=== PATIENT | male | born 1960 | race Caucasian/White ===

== ENCOUNTER → 2016-10-04 | Outpatient (CLI) | payer BC ==
[~2016-10-04] MED LIST: LEVOTHYROXINE125 MCG PO; LEXAPRO 10MG10 MG PO; METOPROLOL SUCC50 M1 PO; VITAMIN B-12 IM
[2016-10-04 14:00] VITALS: BP 129/85
== END ==
LOC: RAD 12:44
DX: Z01.811 Encounter for preprocedural respiratory examination (principal); M17.12 Unilateral primary osteoarthritis, left knee; Z01.812 Encounter for preprocedural laboratory examination; Z01.810 Encounter for preprocedural cardiovascular examination; M89.9 Disorder of bone, unspecified

== ENCOUNTER → 2016-11-04 | Outpatient (CLI) | payer BC | LOC: RAD 10:37 | DX: R93.8 Abnormal findings on diagnostic imaging of other specified body structures (principal) | CPT/HCPCS: Q9967 ==

== ENCOUNTER → 2016-12-24 | Outpatient (CLI) | payer BC | LOC: LAB 14:23 | DX: E29.1 Testicular hypofunction (principal) ==

== ENCOUNTER → 2018-04-15 | Outpatient (CLI) | payer BC ==
[2016-10-04 14:00] VITALS: BP 129/85
== END ==
LOC: LAB 10:34
DX: Z00.00 Encounter for general adult medical examination without abnormal findings (principal); E29.1 Testicular hypofunction

== ENCOUNTER → 2018-06-16 | Outpatient (CLI) | payer BC ==
[~2018-06-16] VITALS: Ht 177.8 cm; Wt 151.8 kg
[~2018-06-16] MED LIST changes: +CYANOCOBAL1000 MCG/1 IM; +DEPO-TESTOS200 MG/M1 IM; +FLONASE ALLERG9.9 ML NS; +VALIUM 5MG T5 MG/TAB PO
[2018-06-16 14:15] LABS: BASO # 0.1 (0.02-0.10); HEMATOCRIT 51.4 % (42.0-52.0); HEMOGLOBIN 16.5 g/dL (13.5-18.0); LYMPH# 1.6 (1.50-4.00); MEAN CELL VOLUME 105 fl (78-100); MEAN CORPUSCULAR HEMOGLOBIN 34 pg (27-31); MEAN CORPUSCULAR HGB CONC 32 g/dL (33-37); MEAN PLATELET VOLUME 11.1 fl (7.4-10.4); MONO # 0.7 (0.20-0.80); NEU # 6.5 (1.40-6.50); PLATELET COUNT 190 K/mm3 (130-400); RED BLOOD COUNT 4.92 M/mm3 (4.20-5.60); RED CELL DISTRIBUTION WIDTH 15.7 % (11.5-14.5); WHITE BLOOD COUNT 9.6 K/mm3 (4.8-10.8)
[2018-06-16 14:22] LABS: EOS # 0.8 (0.04-0.40); EOS % 7.8 % (0.0-4.0)
[2018-06-16 14:28] LABS: CALCIUM 8.6 mg/dL (8.4-10.2); TOTAL BILIRUBIN 0.9 mg/dL (0.2-1.3); TOTAL PROTEIN 6.6 g/dL (6.3-8.2)
[2018-06-16 14:36] VITALS: BP 130/84
[2018-06-16 15:32] LABS: PROTHROMBIN TIME 10.5 SECONDS (9.0-12.0)
[2018-06-16 16:32] LABS: URINE APPEARANCE HAZY; URINE COLOR YELLOW
[2018-06-16 16:33] LABS: URINE BILIRUBIN NEGATIVE (NEGATIVE); URINE BLOOD NEGATIVE (NEGATIVE); URINE GLUCOSE NEGATIVE (NEGATIVE); URINE KETONE NEGATIVE (NEGATIVE); URINE LEUKOCYTE ESTERASE NEGATIVE (NEGATIVE); URINE NITRATE NEGATIVE (NEGATIVE); URINE PROTEIN(semi-quant) TRACE mg/dL (NEGATIVE); URINE UROBILINOGEN NORMAL (NORMAL)
== END ==
LOC: AMSURD 13:53
PROVIDERS: Internal Medicine
DX: Z01.818 Encounter for other preprocedural examination (principal); J84.10 Pulmonary fibrosis, unspecified

== ENCOUNTER → 2019-03-05 | Outpatient (CLI) | payer BC ==
[2018-06-16 14:36] VITALS: BP 130/84
[2019-03-05 17:40] LABS: URINE APPEARANCE HAZY; URINE BILIRUBIN NEGATIVE (NEGATIVE); URINE BLOOD 50 ery/uL (NEGATIVE); URINE COLOR YELLOW; URINE GLUCOSE NEGATIVE (NEGATIVE); URINE KETONE 1+ (NEGATIVE); URINE LEUKOCYTE ESTERASE 1+ (NEGATIVE); URINE NITRATE NEGATIVE (NEGATIVE); URINE PROTEIN(semi-quant) NEGATIVE (NEGATIVE); URINE UROBILINOGEN NORMAL (NORMAL)
[2019-03-05 17:41] LABS: URINE WBC 31-50 /hpf (0-3)
== END ==
LOC: LAB 16:30
PROVIDERS: Internal Medicine
DX: R31.9 Hematuria, unspecified (principal)

== ENCOUNTER → 2019-10-19 | Outpatient (CLI) | payer BC ==
[2018-06-16 14:36] VITALS: BP 130/84
[2019-10-20 00:10] LABS: TESTOSTERONE 1081 ng/dL (221-716)
== END ==
LOC: LAB 15:34
PROVIDERS: Internal Medicine
DX: Z00.00 Encounter for general adult medical examination without abnormal findings (principal); E29.1 Testicular hypofunction; E53.8 Deficiency of other specified B group vitamins

== ENCOUNTER 2020-08-26 10:34 | Emergency (ER) | payer BC ==
[~2020-08-26] VITALS: Wt 165.4 kg
[2020-08-26 11:10] LABS: HEMATOCRIT 53.2 % (42.0-52.0); HEMOGLOBIN 17.9 g/dL (13.5-18.0); MEAN CELL VOLUME 109 fl (78-100); MEAN CORPUSCULAR HGB CONC 34 g/dL (33-37); PLATELET COUNT 76 K/mm3 (130-400); RED CELL DISTRIBUTION WIDTH 14.8 % (11.5-14.5); WHITE BLOOD COUNT 8.9 K/mm3 (4.8-10.8)
[2020-08-26] MEDS ORDERED: QUETIAPINE FUMA25 M3 PO (11:11)
[2020-08-26] MEDS ORDERED: IPRATROPIUM BROM3 M1 IH (11:11)
[2020-08-26] MEDS ORDERED: TESTOSTERO200 MG/1 M IM (11:13)
[2020-08-26] MEDS ORDERED: ASPIRIN E.C. 8181 MG PO (11:14)
[2020-08-26 11:16] LABS: MEAN CORPUSCULAR HEMOGLOBIN 37 pg (27-31); MEAN PLATELET VOLUME 13.4 fl (7.4-10.4)
[2020-08-26] MEDS ORDERED: DIGOXIN125 MCG PO (11:16)
[2020-08-26] MEDS ORDERED: METOPROLOL SUC100 M1 PO (11:16)
[2020-08-26] MEDS ORDERED: TORSEMIDE10 M1 PO (11:16)
[2020-08-26] MEDS ORDERED: POTASSIUM CH2 MEQ/ML PO (11:17)
[2020-08-26 11:27] LABS: ALBUMIN 3.6 g/dL (3.5-5.0); POTASSIUM 3.8 mmol/L (3.5-5.1); SODIUM 134 mmol/L (136-145)
[2020-08-26 11:28] LABS: CALCIUM 7.9 mg/dL (8.3-10.5)
[2020-08-26 11:29] LABS: GLUCOSE 103 mg/dL (75-110); TOTAL PROTEIN 6.5 g/dL (6.4-8.3)
[2020-08-26 11:30] LABS: CARBON DIOXIDE 26 mmol/L (22-29)
[2020-08-26 11:31] LABS: TOTAL BILIRUBIN 1.5 mg/dL (0.2-1.2)
[2020-08-26 11:35] LABS: AST-SGOT 56 U/L (5-34)
[2020-08-26 11:36] LABS: ALT/SGPT 78 U/L (0-55); BAND 8 % (0-10); LIPASE 27 U/L (8-78); LYMPHOCYTE 2 % (20-51); MONOCYTE 9 % (3-10); NEUTROPHILS 81 % (42-75)
[2020-08-26 12:09] LABS: TROPONIN-I < 0.03 ng/mL (<0.030)
[2020-08-26 12:18] LABS: PROTHROMBIN TIME 10.6 SECONDS (9.0-12.0)
[2020-08-26 12:22] LABS: D-DIMER 1.91 mg/L FEU (0.15-0.50)
[2020-08-26 12:25] LABS: ERYTHROCYTE SEDIMENTATION RATE 5 mm/hr (0-20)
[2020-08-26 17:08] VITALS: BP 109/68
[2020-08-26 22:37] LABS: HEPATITIS C ANTIBODY Negative (Negative)
== END 2020-08-26 17:33 | disposition short-term general hospital (02) ==
LOC: ED 10:34
PROVIDERS: Physician Assistant
DX: U07.1 COVID-19 (principal); I48.20 Chronic atrial fibrillation, unspecified; E66.01 Morbid (severe) obesity due to excess calories; J45.909 Unspecified asthma, uncomplicated; E03.9 Hypothyroidism, unspecified; Z79.890 Hormone replacement therapy; Z79.82 Long term (current) use of aspirin
CPT/HCPCS: J1100; J1650; J3480